=== PATIENT | male | born 1995 | race Caucasian/White ===

== ENCOUNTER 2023-07-14 12:47 | Inpatient (IN) ==
[2023-07-14 14:09] LABS: Urine Appearance Clear; Urine Bilirubin Negative (Negative); Urine Blood Negative (Negative); Urine Color Yellow; Urine Glucose Negative (Negative); Urine Ketones Trace (Negative); Urine Nitrite Negative (Negative); Urine Protein 1+(30 mg/dL) (Negative); Urine Specific Gravity 1.027 (1.002-1.030); Urine Urobilinogen Positive (Negative)
[2023-07-14 14:15] LABS: Urine Bacteria Absent (Absent); Urine Red Blood Cell Trace(0-2/hpf) (Absent); Urine White Blood Cell Trace(0-5/hpf) (Absent)
[2023-07-14 14:52] LABS: Urine Benzodiazepine Screen None Detected (None Detect); Urine Cannabinoids Screen None Detected (None Detect); Urine Opiates Screen None Detected (None Detect)
[2023-07-14 16:46] LABS: ABS Eosinophils 0.1 10^3/uL (0.0-0.5); ABS Lymphocytes 1.3 10^3/uL (1.0-4.8); ABS Monocytes 0.4 10^3/uL (0.0-1.1); ABS Neutrophils 3.7 10^3/uL (1.5-7.6); Eosinophil % 1.1 %; Hematocrit 45.3 % (38-53); Hemoglobin 15.9 g/dL (13.2-16.3); Lymphocyte % 23.4 %; Mean Corpuscular Hemoglobin 31.4 pg (27-33); Mean Corpuscular Hgb Conc 35.1 g/dL (31-36); Mean Corpuscular Volume 89.3 fL (80-97); Mean Platelet Volume 7.1 fL (7.5-11.2); Nucleated Red Blood Cells % 0.1 /100 WBC (0.0-0.4); Platelet Count 300 10^3/uL (150-450); Red Blood Count 5.07 10^6/uL (4.06-5.63); Red Cell Distribution Width 12.9 % (12-17); White Blood Count 5.4 10^3/uL (3.6-10.2)
[2023-07-14 17:01] LABS: ALT 14 U/L (7-52); AST 14 U/L (13-39); Albumin 5.1 g/dL (3.2-5.2); Albumin/Globulin Ratio 2.1 (1-3); Alkaline Phosphatase 54 U/L (35-149); Anion Gap 8 mmol/L (2-16); Blood Urea Nitrogen 16 mg/dL (6-24); CO2 Carbon Dioxide 26 mmol/L (22-32); Calcium 9.9 mg/dL (8.6-10.3); Chloride 103 mmol/L (101-111); Creatinine, Serum 1.15 mg/dL (0.67-1.17); Globulin 2.4 g/dL (2-4); Glucose 93 mg/dL (70-100); Potassium 4.4 mmol/L (3.5-5.0); Sodium 137 mmol/L (135-145); Total Protein 7.5 g/dL (6.4-8.9); eGFR CKD-EPI 88.4 (>60)
[2023-07-14 17:31] LABS: Acetaminophen < 15 mcg/mL; Alcohol, S < 13 mg/dL (<13); Salicylate < 2.50 mg/dL (<30)
[2023-07-14 17:45] LABS: TSH Ultra Thyroid Stim Horm 0.55 mcIU/mL (0.34-5.60)
[2023-07-15] MEDS ORDERED: Nicotine GUM 2MG FRUIT FLAVOR PO ONE (14:31)
[2023-07-15] MEDS ORDERED: Al Hydrox/Mg Hydrox/Simet LIQ 30 ML UDC PO PRN (14:34)
[2023-07-15] MEDS ORDERED: Nicotine GUM 2MG FRUIT FLAVOR PO PRN (15:00)
[2023-07-15] MEDS: Nicotine PATCH 21 MG/24 HR PATCH TRANSDERM SCH (17:35)
[2023-07-15] MEDS: Nicotine Lozenge mini 2 MG LOZNG.MINI MT PRN ×3 (17:36→22:04)
[2023-07-16] MEDS: Nicotine PATCH 21 MG/24 HR PATCH TRANSDERM SCH (07:52)
[2023-07-16] MEDS: Nicotine Lozenge mini 2 MG LOZNG.MINI MT PRN (08:20)
[2023-07-16] MEDS ORDERED: Nicotine GUM 4MG FRUIT FLAVOR PO ONE ×3 (10:02→14:03)
[2023-07-16] MEDS: Vitamin THERAPEUTIC TAB PO SCH (10:03)
[2023-07-16] MEDS: Nicotine GUM 4MG FRUIT FLAVOR PO PRN ×3 (16:31→21:17)
[2023-07-17] MEDS: Vitamin THERAPEUTIC TAB PO SCH (07:01)
[2023-07-17] MEDS: Nicotine PATCH 21 MG/24 HR PATCH TRANSDERM SCH (07:01)
[2023-07-17] MEDS: Nicotine GUM 4MG FRUIT FLAVOR PO PRN ×3 (07:02→11:13)
[2023-07-17 10:27] VITALS: BP 114/72
== END 2023-07-17 14:45 | disposition home or self-care (01) | DRG 882 ==
LOC: ED 12:47 → EDHOLD 07-15 13:13 → BSU 07-15 13:43
PROVIDERS: ADMIT Psychiatry & Neurology Psychiatry; ATTEND Psychiatry & Neurology Psychiatry